=== PATIENT | male | born 1980 | race Caucasian/White ===

== ENCOUNTER → 2017-09-01 | Outpatient (REF) ==
[~2017-09-01] MED LIST: AUG875 PO; CYCL-277 PO; KET10 PO; PER PO
== END ==
LOC: AUD 08:30
PROVIDERS: ATTEND Internal Medicine
DX: Z01.10 Encounter for examination of ears and hearing without abnormal findings (principal)
CPT/HCPCS: 92552

== ENCOUNTER 2018-11-11 19:35 | Emergency (ER) | payer BC ==
--- NOTE | 2018-11-11 19:54 | ER Report ---
History and Physical Time Seen By MD: 19:54 HPI/ROS CHIEF COMPLAINT: chest pain/tightness. HISTORY OF PRESENT ILLNESS: This is a 38 year old male. He started having some tightness in left central chest just to the left of sternum. Worsens with deep breaths and with movement of the left arm. Started while at rest. Took an aspirin. Mild shortness of breath. No cough, fever, or recent illness such as sore throat or runny nose. No reflux or nausea. No abdominal pain. Pain dose sometimes radiate to the left scapula. Allergies: Coded Allergies: No Known Drug Allergies (Unverified , 11/11/18) Home Meds Active Scripts Prednisone (PREDNISONE) 20 Mg Tablet, 60 MG PO QDAY, #15 TAB 0 Refills Prov:DIEGO STALEY MD 11/11/18 Reported Medications Krill Oil/[place]-3/Dha/Epa (OMEGA-3 KRILL OIL SOFTGEL) 1 Each Capsule, 1 EACH PO QDAY, CAPSULE 11/11/18 Lecithin (Lecithin) 1,200 Mg Capsule, 1 CAP PO QDAY 11/11/18 Arginine (L-ARGININE) 500 Mg Capsule, 500 MG PO QDAY, CAPSULE 11/11/18 Magnesium Oxide (MAGNESIUM) 250 Mg Tablet, 250 MG PO QDAY 11/11/18 Cholecalciferol (Vitamin D3) (VITAMIN D3) 1,000 Unit Tablet, 1000 UNIT PO QDAY, TAB 11/11/18 Ascorbic Acid (VITAMIN C) 500 Mg Tablet, 500 MG PO QDAY, TAB 11/11/18 Cyanocobalamin (Vitamin B-12) (Vitamin B12) 2,500 Mcg Tablet, 1 TAB PO QDAY 11/11/18 [vit b6] No Conflict Check, 1 TAB PO QDAY 11/11/18 Discontinued Reported Medications Amoxicillin/Clavulanate K (Augmentin) 875 Mg Tab, 875 MG PO BIDBS, #20 0 Refills 04/13/09 Discontinued Scripts Cyclobenzaprine Hcl (CYCLOBENZAPRINE HCL) 5 Mg Tablet, 10 MG PO TID for PAIN, #18 TAB Prov:JOSSUE CHERY MD 12/19/16 Ketorolac Tromethamine (KETOROLAC TROMETHAMINE) 10 Mg Tab, 10 MG PO Q6H PRN for PAIN, #12 TAB Prov:JOSSUE CHERY MD 12/19/16 Reviewed Nurses Notes: Yes Hx Substance Use Disorder: No Hx Alcohol Use: No Constitutional Vital Sign - Last 24 Hours 11/11/18 11/11/18 11/11/18 11/11/18 19:40 19:50 20:00 20:05 Temp 98.0 Pulse 63 71 59 Resp 19 33 23 B/P (MAP) 115/87 112/77 (89) Pulse Ox 93 93 94 O2 Delivery Room Air 11/11/18 11/11/18 11/11/18 11/11/18 20:30 20:35 20:40 20:55 Pulse 66 64 63 Resp 21 31 9 B/P (MAP) 109/71 (84) Pulse Ox 93 95 94 11/11/18 11/11/18 11/11/18 11/11/18 21:00 21:10 21:25 21:30 Pulse 66 62 Resp 9 8 B/P (MAP) 95/62 (73) 96/64 (75) Pulse Ox 94 93 11/11/18 11/11/18 11/11/18 11/11/18 21:40 21:55 22:00 22:10 Pulse 73 69 65 Resp 13 21 8 B/P (MAP) 93/69 (77) Pulse Ox 95 93 93 11/11/18 22:15 Pulse 70 Resp 13 Pulse Ox 94 Physical Exam General Appearance: The patient is alert. No acute distress. Eyes: Pupils are equal, round. No pallor, injection or icterus. ENT: Mucous membranes are moist. Normal oral mucosa. Posterior oropharynx is normal. Neck: Supple and non tender. Respiratory: Lungs are clear to auscultation. Cardiovascular: Regular rate and rhythm. No murmurs, gallops or rubs. Normal capillary refill. No edema. Gastrointestinal: Abdomen is soft and non tender. Nondistended. Normal active bowel sounds. No costovertebral angle tenderness with percussion. Neurological: Alert and oriented x3. No focal neurologic deficits Skin: Warm and dry. No rashes. Musculoskeletal: Extremities are nontender. Has some reproducible pain with palpation costal margin just to left of sternum. No tenderness in palpation of the cervical, thoracic and lumbar spine. No reproduce pain with palpating on the back and scapula. DIFFERENTIAL DIAGNOSIS: After history and physical exam, differential diagnosis was considered for chest pain that appears likely inflammatory or pleuritic. Medical Decision Making Data Points Result Diagram: 11/11/18194411/11/181944 Laboratory Hematology Test 11/11/18 19:45 Red Blood Count 5.90 M/uL (4.00-5.60) Mean Corpuscular Volume 80.8 fL (80.0-96.0) Mean Corpuscular Hemoglobin 27.3 pg (26.0-33.0) Mean Corpuscular Hemoglobin Concent 33.8 g/dL (32.0-36.0) Red Cell Distribution Width 13.8 % (11.5-14.5) Mean Platelet Volume 7.6 fL (7.2-11.1) Neutrophils (%) (Auto) 51.0 % (39.4-72.5) Lymphocytes (%) (Auto) 35.2 % (17.6-49.6) Monocytes (%) (Auto) 10.6 % (4.1-12.4) Eosinophils (%) (Auto) 2.3 % (0.4-6.7) Basophils (%) (Auto) 0.9 % (0.3-1.4) Nucleated RBC Relative Count (auto) 0.1 /100WBC Neutrophils # (Auto) 3.6 K/uL (2.0-7.4) Lymphocytes # (Auto) 2.5 K/uL (1.3-3.6) Monocytes # (Auto) 0.7 K/uL (0.3-1.0) Eosinophils # (Auto) 0.2 K/uL (0.0-0.5) Basophils # (Auto) 0.1 K/uL (0.0-0.1) Nucleated RBC Absolute Count (auto) 0.01 K/uL D-Dimer Quantitative (PE/DVT) < 0.27 ug/ml (0-0.50) Sodium Level 138 mmol/L (137-145) Potassium Level 3.8 mmol/L (3.5-5.0) Chloride Level 105 mmol/L (98-107) Carbon Dioxide Level 23 mmol/L (22-30) Blood Urea Nitrogen 15 mg/dl (9-21) Creatinine 1.20 mg/dl (0.66-1.25) Glomerular Filtration Rate Calc > 60.0 Random Glucose 103 mg/dl (75-110) Calcium Level 9.0 mg/dl (8.4-10.2) Total Bilirubin 0.5 mg/dl (0.2-1.3) Aspartate Amino Transf (AST/SGOT) 38 U/L (0-35) Alanine Aminotransferase (ALT/SGPT) 83 U/L (0-56) Alkaline Phosphatase 43 U/L (0-126) Troponin I 0.012 ng/ml Total Protein 6.9 g/dl (6.3-8.2) Albumin 4.1 g/dl (3.5-5.0) Chemistry Test 11/11/18 19:45 White Blood Count 7.0 k/uL (4.5-11.0) Red Blood Count 5.90 M/uL (4.00-5.60) Hemoglobin 16.1 g/dL (14.0-18.0) Hematocrit 47.6 % (42.0-52.0) Mean Corpuscular Volume 80.8 fL (80.0-96.0) Mean Corpuscular Hemoglobin 27.3 pg (26.0-33.0) Mean Corpuscular Hemoglobin Concent 33.8 g/dL (32.0-36.0) Red Cell Distribution Width 13.8 % (11.5-14.5) Platelet Count 270 K/uL (150-450) Mean Platelet Volume 7.6 fL (7.2-11.1) Neutrophils (%) (Auto) 51.0 % (39.4-72.5) Lymphocytes (%) (Auto) 35.2 % (17.6-49.6) Monocytes (%) (Auto) 10.6 % (4.1-12.4) Eosinophils (%) (Auto) 2.3 % (0.4-6.7) Basophils (%) (Auto) 0.9 % (0.3-1.4) Nucleated RBC Relative Count (auto) 0.1 /100WBC Neutrophils # (Auto) 3.6 K/uL (2.0-7.4) Lymphocytes # (Auto) 2.5 K/uL (1.3-3.6) Monocytes # (Auto) 0.7 K/uL (0.3-1.0) Eosinophils # (Auto) 0.2 K/uL (0.0-0.5) Basophils # (Auto) 0.1 K/uL (0.0-0.1) Nucleated RBC Absolute Count (auto) 0.01 K/uL D-Dimer Quantitative (PE/DVT) < 0.27 ug/ml (0-0.50) Glomerular Filtration Rate Calc > 60.0 Calcium Level 9.0 mg/dl (8.4-10.2) Total Bilirubin 0.5 mg/dl (0.2-1.3) Aspartate Amino Transf (AST/SGOT) 38 U/L (0-35) Alanine Aminotransferase (ALT/SGPT) 83 U/L (0-56) Alkaline Phosphatase 43 U/L (0-126) Troponin I 0.012 ng/ml Total Protein 6.9 g/dl (6.3-8.2) Albumin 4.1 g/dl (3.5-5.0) Coagulation Test 11/11/18 19:45 D-Dimer Quantitative (PE/DVT) < 0.27 ug/ml EKG/Imaging EKG Interpretation 12 lead EKG: Rhythm: Normal sinus rhythm with sinus arrhythmia, rate 70 [place]: normal QRS: normal ST segments: Normal Imaging 2 VIEWS CHEST INDICATION: Cough. Right rib pain. COMPARISON: None available FINDINGS: Cardiomediastinal silhouette and pulmonary vessels within normal limits. There is no focal infiltrate or lobar consolidation. There is no pneumothorax or pleural effusion. No nodule. Upper abdomen is unremarkable. No acute bony abnormality. IMPRESSION: 1. No acute cardiopulmonary process. No discrete right rib abnormality. Report Dictated By: Austyn Amaral at 11/11/2018 8:42 PM ED Course/Re-evaluation Clinical Indication for ER IV: IV Access ED Course Initial evaluation showed this is likely chest wall pain. Patient has normal troponin, d-dimer, and other labs as well as EKG and chest x-ray. Discussed all these results with the patient. Discussed treatment for chest wall pain and inflammation. See instructions below Decision to Disposition Date: Nov 11, 2018 Decision to Disposition Time: 22:10 Depart Departure Latest Vital Signs Vital Signs Date Time Temp Pulse Resp B/P (MAP) Pulse Ox O2 Delivery O2 Flow Rate FiO2 11/11/18 22:15 70 13 94 11/11/18 22:00 93/69 (77) 11/11/18 19:40 98.0 Room Air Impression: Primary Impression: Chest wall pain Condition: Improved Disposition: HOME OR SELF-CARE New Scripts Prednisone (PREDNISONE) 20 Mg Tablet 60 MG PO QDAY, #15 TAB 0 Refills Prov: DIEGO STALEY MD 11/11/18 Patient Instructions: Chest Wall Pain (ED) Additional Instructions: Your pain appears to be due to inflammation in the cartilage or soft tissue of the chest. No problems were noted on labs, EKG or chest x-ray. Take Ibuprofen 200mg over the counter tablets, take 4 tablets every 8 hours with food for the next 4-5 days. If pain is not improving, you can try a course of Prednisone 20mg tablets, 3 tablets once a day for 5 days. If not improving after this, you should follow-up with primary care for further evaluation. Return to the ER if worsening symptoms. DIEGO STALEY MD Nov 11, 2018 19:54
[2018-11-11 20:04] LABS: PLATELET COUNT, AUTOMATED 270 K/uL (150-450)
--- NOTE | 2018-11-11 20:49 | RADIOLOGY IMAGING REPORT ---
FACILITY: [facility] PATIENT NAME: James Nuñez : 1980 MR: [id number] V: [id number] EXAM DATE: ORDERING PHYSICIAN: DIEGO STALEY TECHNOLOGIST: Location: [facility] Patient: James Nuñez : 1980 Visit/Account:[id number] Date of Sevice: 11/11/2018 2 VIEWS CHEST INDICATION: Cough. Right rib pain. COMPARISON: None available FINDINGS: Cardiomediastinal silhouette and pulmonary vessels within normal limits. There is no focal infiltrate or lobar consolidation. There is no pneumothorax or pleural effusion. No nodule. Upper abdomen is unremarkable. No acute bony abnormality. IMPRESSION: 1. No acute cardiopulmonary process. No discrete right rib abnormality. Report Dictated By: Austyn Amaral at 11/11/2018 8:42 PM Report E-Signed By: Austyn Amaral at 11/11/2018 8:44 PM [id number]
[2018-11-11] MEDS ORDERED: LECI12002 PO (20:51)
[2018-11-11] MEDS ORDERED: KRIL1CAP4 PO (20:51)
[2018-11-11] MEDS ORDERED: ARGI500C9 PO (20:51)
[2018-11-11] MEDS ORDERED: ASCO-182 PO (20:51)
[2018-11-11] MEDS ORDERED: CYAN25004 PO (20:51)
[2018-11-11] MEDS ORDERED: CHOL10005 PO (20:51)
[2018-11-11] MEDS ORDERED: MAGN250T34 PO (20:51)
[2018-11-11] MEDS ORDERED: vit b6 PO (20:51)
[2018-11-11 22:00] VITALS: BP 93/69
[2018-11-11] MEDS ORDERED: PRED20TA6 PO (22:12)
--- NOTE | 2018-11-11 23:56 | EKG ---
FACILITY: [facility] [place] PATIENT NAME: MARIE GARCIA : [id number] MR: [id number] V: [id number] EXAM DATE: ORDERING PHYSICIAN: DIEGO STALEY TECHNOLOGIST: DAGOBERTO Monahan Reason : CP/SOB Blood Pressure : / mmHG Vent. Rate : 070 BPM Atrial Rate : 070 BPM P-R Int : 168 ms QRS Dur : 090 ms QT Int : 390 ms P-R-T Axes : 045 057 020 degrees QTc Int : 421 ms Normal sinus rhythm with sinus arrhythmia Normal ECG No previous ECGs available Confirmed by LUIS JOHNSON ([id number]) on 11/12/2018 6:26:31 AM Referred By: Confirmed By:LUIS JOHNSON
== END 2018-11-11 22:25 | disposition home or self-care (01) ==
LOC: ER 19:44
DX: R07.89 Other chest pain (principal)
CPT/HCPCS: 71046; 82040; 82247; 82310; 82374; 82435; 82565; 82947; 84075; 84132; 84155; 84295; 84450; 84460; 84484; 84520; 85025; 85379; 93005; 99284